=== PATIENT | female | born 1955 | race Caucasian/White ===

== ENCOUNTER 2017-11-23 12:40 | Emergency (ER) | payer MEDICAID ==
[2017-11-23 12:51] VITALS: BP 118/76
--- NOTE | 2017-11-23 13:25 | EDPHY ---
General - History Smoking Status: Never smoked Time Seen by Provider: 11/23/17 13:20 Narrative: CHIEF COMPLAINT: Fall, wrist pain HISTORY OF PRESENT ILLNESS: Patient complains of fall last night with left wrist pain. She reports a mechanical fall, landing on an outstretched left arm. She felt a sudden onset of pain left wrist and ulna. [id number] yesterday. Mild today. Worse with palpation and movement. No numbness or tingling. No weakness. No pain left elbow or shoulder. She did not strike her head or lose consciousness. She has no sensory complaints. No weakness. No other associated complaints or modifying factors. DOMINANT EXTREMITY: Right hand dominant ESTABLISHED ORTHOPEDIST: None REVIEW OF SYSTEMS: Ten systems reviewed and are negative unless otherwise noted in the HPI PAST MEDICAL HISTORY: Rheumatoid arthritis PAST SURGICAL HISTORY: No surgical history SOCIAL HISTORY: Nonsmoker. Lives here independently. FAMILY HISTORY: Noncontributory EXAMINATION: General Appearance: Alert, no distress Cardiovascular: Symmetric radial pulses 2+. Brisk cap refill the fingers of the left hand. Neurological: A&O, light and 2 point sensory symmetric, plastic surgery specialist and interossei strength symmetric Skin: Warm and dry, no rash. No laceration or puncture. No ecchymosis Extremities: There is tenderness of the left wrist overlying the ulnar head but no tenderness over the anatomic snuffbox. Range of motion of the fingers symmetric range of motion of the wrist symmetric. Range of motion of the elbow symmetric. All compartments are soft in left upper extremity with no cellulitis. Psychiatric: Mood and affect normal DIFFERENTIAL DIAGNOSES: Including but not limited to sprain, strain, fracture, dislocation, subluxation , scaphoid injury MDM: 1:20 p.m. Fall yesterday with acute left wrist sprain and possible, subtle ulnar styloid fracture and radial fracture with no displacement. She is neuro intact in left upper extremity with no injury elsewhere. I do not appreciate any obvious injury elsewhere. There is no snuffbox tenderness. I will place her in a sugar -tong splint for protection of the wrist. 1:45 p.m. Patient re-evaluated. Splint has been placed and I re-evaluated. She remained CMS intact. We discussed ice and elevation. We discussed mandatory orthopedic follow-up. We discussed ED precautions. Her radiology interpretation is pending at this time and I will contact her with the information needed. Discharged home stable condition. 4:30 p.m. After the patient was discharged her radiology report did come back as positive for a possible, nondisplaced fracture at the waist of the scaphoid. I do feel this is highly unlikely as she has no tenderness in the snuffbox. I will contact her to discuss. 4:40 p.m. I have contacted the patient and discussed the x-ray findings with her. I did offer for her to come back here for an ortho glass thumb spica splint. She states that she would rather wait and see the orthopedist as she is on the bus and it is hard for to do so. Feel it is likely that she will do fine with the splint in place that she does not remove it. Her pain was not over the snuffbox for me. I did stress the importance of follow up with Orthopedics for definitive care as the wrist will need repeat imaging. She is comfortable with this plan. SUPERVISION: This patient was independently evaluated without direct involvement of or examination by the attending physician. (Claudio Aden) The patient was evaluated and managed by the physician treasury assistant. I have reviewed this chart and I agree with the findings and plan of care as documented , as indicated by my signature. I am the secondary supervising physician. ( Akiko Burgos) - Objective Vital Signs: Initial Vital Signs Temperature (C) 36.6 C 11/23/17 12:49 Heart Rate 71 11/23/17 12:49 Respiratory Rate 18 11/23/17 12:49 Blood Pressure 118/76 11/23/17 12:49 O2 Sat (%) 95 11/23/17 12:49 O2 Delivery Mode Room Air Allergies/Adverse Reactions: imipramine [Imipramine] Allergy (Unknown, Verified 04/09/09 16:14) Home Medications: Medication Instructions Recorded NK [No Known Home Meds] 11/23/17 Medications Given: Discontinued Medications Ibuprofen (Motrin) 600 mg PO EDNOW ONE Stop: 11/23/17 13:43 Last Admin: 11/23/17 13:44 Dose: 600 mg Departure - Departure Disposition: Home, Routine, Self-Care Clinical Impression: Sprain of wrist, left, Wrist fracture, left Condition: Good Instructions: Wrist Fracture in Adults (ED), Wrist Sprain (ED) Additional Instructions: 1. Keep your splint in place at all times 2. Ice and elevate the extremity often 3. Ibuprofen 600 mg every 8 hr as needed for pain 4. Contact Orthopedics for outpatient definitive care as provided Five. ED precautions for numbness, tingling, weakness, severe pain Referrals: Mark Arnold MD [Medical Doctor] - As per Instructions
[2017-11-23] MEDS: IBUPROFEN 600 MG TAB PO ONE (13:44)
== END 2017-11-23 13:45 | disposition home or self-care (01) ==
DX: S69.91XA Unspecified injury of right wrist, hand and finger(s), initial encounter (principal); W19.XXXA Unspecified fall, initial encounter
CPT/HCPCS: A4565